=== PATIENT | female | born 1965 | race African-American/Black ===

== ENCOUNTER 2017-01-03 21:34 | Emergency (ER) | payer MEDICAID ==
[~2017-01-03] VITALS: Ht 182.9 cm; Wt 117.0 kg
[2017-01-04 02:38] VITALS: BP 136/72
== END 2017-01-04 02:39 | disposition home or self-care (01) ==
LOC: ER 21:34
DX: S63.92XA Sprain of unspecified part of left wrist and hand, initial encounter (principal); W18.30XA Fall on same level, unspecified, initial encounter; Y93.89 Activity, other specified; Y92.89 Other specified places as the place of occurrence of the external cause; Y99.8 Other external cause status
CPT/HCPCS: 73090; 73130; 99284

== ENCOUNTER 2019-02-02 10:42 | Emergency (ER) | payer SELFPAY ==
[~2019-02-02] VITALS: Ht 182.9 cm; Wt 117.0 kg
[2019-02-02 11:04] VITALS: BP 135/90
[2019-02-02] MEDS ORDERED: IBUPROFEN 600MG TABLET PO ONE (11:45)
== END 2019-02-02 13:48 | disposition home or self-care (01) ==
LOC: ER 10:42
DX: M79.675 Pain in left toe(s) (principal); W22.8XXA Striking against or struck by other objects, initial encounter; Y93.89 Activity, other specified; Y92.018 Other place in single-family (private) house as the place of occurrence of the external cause
CPT/HCPCS: 73630; 99283; Z7610